=== PATIENT | male | born 1995 | race Caucasian/White ===

== ENCOUNTER 2020-08-29 12:54 | Emergency (ER) | payer OTHER ==
[~2020-08-29] VITALS: Ht 172.7 cm; Wt 80.3 kg
[2020-08-29 15:39] LABS: BASO # 0.1 10^3/uL (0.0-0.2); BASO % 0.7 % (0.0-1.0); EOS # 0.1 10^3/uL (0.0-0.5); EOS % 1.3 % (0.0-3.0); HEMATOCRIT 46.4 % (42.0-52.0); LYMPH % 23.7 % (24.0-44.0); MEAN CORPUSCULAR HEMOGLOBIN 27.3 pg (27.0-33.0); MEAN CORPUSCULAR HGB CONC 32.3 g/dl (32.0-36.5); MEAN CORPUSCULAR VOLUME 84.4 fl (80.0-96.0); MONO # 0.7 10^3/uL (0.0-0.8); MONO % 8.2 % (0.0-5.0); NEUTROPHILS # 5.5 10^3/uL (1.5-8.5); NEUTROPHILS % 65.6 % (36.0-66.0); PLATELET COUNT, AUTOMATED 261 10^3/uL (150-450); WHITE BLOOD COUNT 8.3 10^3/uL (4.0-10.0)
[2020-08-29] MEDS ORDERED: ISOVUE-370 76% 100ML VIAL As Ordered ONE (16:04)
[2020-08-29 16:09] LABS: ALBUMIN 4.6 GM/DL (3.2-5.2); BILIRUBIN,DIRECT 0.2 MG/DL (0.0-0.2); BILIRUBIN,TOTAL 0.8 MG/DL (0.2-1.0)
--- NOTE | 2020-08-29 16:29 | REP ---
INDICATION: RLQ TTP, r/o appendicitis. COMPARISON: None. TECHNIQUE: Helical scanning was acquired and 4 mm axial images are re-formatted. Coronal and sagittal MPR images were generated and reviewed. The contrast enhancement dose is 100 mL of intravenous Isovue 370. 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 The lung bases are free of infiltrate. No evidence of pleural effusion. There is however a noncalcified pulmonary nodule in the right lower lobe on image number 13 of 40 and series 204 today's study. This measures 6 mm in greatest diameter. There is a smaller 3 mm noncalcified nodule in the left lower lobe on page 3. The liver and the spleen are normal in size homogeneous in texture. Normal adrenal glands are observed bilaterally. No abnormality is noted in the pancreas or within the gallbladder. The kidneys enhance symmetrically and are morphologically intact. No retroperitoneal mass or adenopathy is observed. A normal noninflamed appendix is seen in the right pelvis. It is somewhat elongate and courses deep and posterior in the pelvis. There is no CT evidence of appendicitis. Seminal vesicles, urinary bladder, and prostate gland are unremarkable. No abdominal wall defect is observed. Small and large bowel loops are unremarkable in the abdomen and pelvis. No evidence of obstruction or free intraperitoneal air. No abnormal fluid collection. IMPRESSION: 1. Elongate but noninflamed appendix seen deep within the pelvis. No CT evidence of appendicitis. 2. 6 mm noncalcified pulmonary nodule right lower lobe. There is a 3 mm noncalcified nodule in the left lower lobe. These are very likely granulomatous. 3. No acute abdominal or pelvic abnormality. <Electronically signed by Devon Baldwin > 08/29/20 [id number]
[2020-08-29] MEDS ORDERED: CIPR-249 PO (16:40)
[2020-08-29 16:59] VITALS: BP 132/68
[2020-08-29 18:43] LABS: CHLAMYDIA DNA AMPLIFICATION POSITIVE (NEGATIVE); GC DNA AMPLIFICATION NEGATIVE (NEGATIVE)
--- NOTE | 2020-08-30 15:18 | ED PDOC ---
Post-Departure Follow-Up ct abd/p faxed to kyrie bagley for fu Miguelina Landin MD Aug 30, 2020 15:18
== END 2020-08-29 17:01 | disposition home or self-care (01) ==
LOC: M ED 12:54
DX: N39.0 Urinary tract infection, site not specified (principal); R91.8 Other nonspecific abnormal finding of lung field
CPT/HCPCS: 36415; 74177; 80047; 80076; 81001; 82150; 83690; 85025; 87086; 87491; 87591; 99284; Q9967